=== PATIENT | male | born 1970 | race Caucasian/White ===

== ENCOUNTER → 2018-10-11 | Day surgery (SDC) | payer BC ==
[~2018-10-11] MED LIST: ALBUTEROL SULFATE 2.5 MG/3 ML NEBU. NEB PRN; ATROPINE 0.5 MG/5 ML DISP.SYRIN. IV PRN; IV RINGERS SOLUTION,LACTATED 1,000 ML IV SCH; LIDOCAINE 2% PF Vial for OR 5 ML VIAL. ONE; NALOXONE 0.4 MG/ML VIAL. IV PRN; OMEP20TA63 PO; ONDANSETRON PF 4 MG/2 ML VIAL. IV PRN; PROPOFOL 40 ML IV ONE; diphenhydrAMINE 50 MG/ML VIAL IV PRN
[2018-10-11 09:21] VITALS: BP 11/61
== END | disposition home or self-care (01) ==
LOC: SURG 07:37
PROVIDERS: ATTEND Internal Medicine Gastroenterology
DX: Z12.11 Encounter for screening for malignant neoplasm of colon (principal); F41.9 Anxiety disorder, unspecified; F32.9 Major depressive disorder, single episode, unspecified; K21.9 Gastro-esophageal reflux disease without esophagitis; Z87.440 Personal history of urinary (tract) infections; Z80.42 Family history of malignant neoplasm of prostate; Z88.8 Allergy status to other drugs, medicaments and biological substances; Z79.899 Other long term (current) drug therapy; K08.409 Partial loss of teeth, unspecified cause, unspecified class; Z72.89 Other problems related to lifestyle
CPT/HCPCS: 45378; J2704; J7120; J2001